=== PATIENT | female | born 1940 | race Caucasian/White ===

== ENCOUNTER 2024-05-03 12:04 | Day surgery (SDC) | payer MEDICARE, BC ==
[2024-05-02 09:29] VITALS: BMI 25.0
[2024-05-03 12:54] VITALS: TEMP 97.9
[2024-05-03] MEDS: IV FLUID CONTINUATION 1,000 ML IV ONE ×2 (13:10→13:35)
[2024-05-03] MEDS: LACTATED RINGERS 1,000 ML IV SCH (13:11)
[2024-05-03] MEDS ORDERED: LIDOCAINE 1% INJ 10MG/ML (20 ML MDV) ONE (13:36)
[2024-05-03] MEDS ORDERED: PROPOFOL 10 MG/ML 20 ML VIAL IV ONE (13:36)
--- NOTE | 2024-05-03 13:56 | P.GSHP ---
History of Present Illness H&P Date: 05/03/24 Chief Complaint: Colon cancer screening 84-year-old female here for colonoscopy. Last colonoscopy 6 years ago. Patient had a hyperplastic polyp. Family history of colorectal cancer in her daughter. No bowel complaints. Past Medical History Past Medical History: Hyperlipidemia, Hypertension History of Any Multi-Drug Resistant Organisms: None Reported Past Surgical History: Section, Cholecystectomy Additional Past Surgical History / Comment(s): cyst removed from ovary, deviated septum, colonoscopy Past Anesthesia/Blood Transfusion Reactions: No Reported Reaction Additional Past Anesthesia/Blood Transfusion Reaction / Comment(s): no blood transfusion reaction Smoking Status: Never smoker - Past Family History Father Family Medical History: Deep Vein Thrombosis (DVT) Mother Family Medical History: Cancer Additional Family Medical History / Comment(s): liver Medications and Allergies Home Medications Medication Instructions Recorded Confirmed Type Atorvastatin [Lipitor] 10 mg PO HS 05/02/24 05/03/24 History Cholecalciferol (Vitamin D3) 50 mcg PO HS 05/02/24 05/03/24 History [Vitamin D3 (50 Mcg = 2000 Iu)] Lisinopril-Hctz 10-12.5 mg 1 tab PO HS 05/02/24 05/03/24 History [Zestoretic 10-12.5] Allergies Allergy/AdvReac Type Severity Reaction Status Date / Time Penicillins Allergy Rash/Hives Verified 05/03/24 12:49 Surgical - Exam Vital Signs Temp Pulse Resp BP Pulse Ox 97.9 F 87 18 156/82 96 05/03/24 12:45 05/03/24 12:45 05/03/24 12:45 05/03/24 12:45 05/03/24 12:45 Physical exam: General: Well-developed, well-nourished HEENT: Normocephalic, sclerae nonicteric Abdomen: Nontender, nondistended Extremities: No edema Neuro: Alert and oriented Assessment and Plan (1) Colon cancer screening Narrative/Plan: Will proceed with colonoscopy at this time. Current Visit: Yes Status: Acute Code(s): Z12.11 - ENCOUNTER FOR SCREENING FOR MALIGNANT NEOPLASM OF COLON SNOMED Code(s): 884641375
--- NOTE | 2024-05-03 14:10 | P.PCN ---
Date of Procedure: 05/03/24 Procedure(s) Performed: PREOPERATIVE DIAGNOSIS: Screening with history of polyps and family history of colon cancer POSTOPERATIVE DIAGNOSIS: Diverticulosis PROCEDURE: Colonoscopy ANESTHESIA: MAC SURGEON: Amilcar Stubbs M.D. SPECIMENS: None ENDOSCOPIC PROCEDURE: The patient was placed on the endoscopy table in the left decubitus position. The Olympus colonoscope was inserted into the anus and passed under direct visualization to the base of the cecum. The appendiceal orifice was visualized. From that point the scope was slowly withdrawn inspecting all surfaces carefully. There were no neoplastic inflammatory or polypoid lesions throughout the cecum, ascending, transverse, descending, sigmoid and rectum. There was scattered diverticulosis noted throughout the colon. Digital rectal examination was normal. The patient was taken to the recovery room in stable condition per anesthesia guidelines. RECOMMENDATIONS: Resume diet. Will discuss findings with patient. Will likely not advise any follow-up routine screening colonoscopy moving forward given the patient's advanced age.
[2024-05-03 14:23] VITALS: RESP 14
[2024-05-03 14:28] VITALS: BP 118/77; PULSE 71
== END 2024-05-03 14:50 | disposition home or self-care (01) ==
LOC: ORWHC2ENDO 12:04
PROVIDERS: ATTEND Surgery
DX: Z12.11 Encounter for screening for malignant neoplasm of colon (principal); K57.30 Diverticulosis of large intestine without perforation or abscess without bleeding; I10 Essential (primary) hypertension; E78.5 Hyperlipidemia, unspecified; Z79.899 Other long term (current) drug therapy; Z86.0100 Personal history of colon polyps, unspecified; Z88.0 Allergy status to penicillin; Z80.0 Family history of malignant neoplasm of digestive organs
CPT/HCPCS: J2003; J2704; G0105; 45378